=== PATIENT | female | born 2000 | race Caucasian/White ===

== ENCOUNTER 2023-12-15 13:28 | Emergency (ER) | payer SELFPAY ==
[~2023-12-15] VITALS: Ht 157.5 cm; Wt 60.0 kg
[2023-12-15 13:37] VITALS: O2SAT 98
[2023-12-15 14:08] LABS: BASOPHILS % 0.6 % (0.0-2.0); EOSINOPHILS % 0.9 % (0.0-5.0); HEMATOCRIT. 37.5 % (36.0-48.0); HEMOGLOBIN. 12.6 g/dL (12.0-16.0); LYMPHOCYTES % 29.2 % (20.0-50.0); MEAN CORPUSCULAR HEMOGLOBIN 31.6 pg (28.0-32.0); MEAN CORPUSCULAR HGB CONC 33.5 g/dL (31.0-37.0); MEAN CORPUSCULAR VOLUME 94.2 fL (81.0-99.0); MEAN PLATELET VOLUME 9.6 fl (7.4-10.4); MONOCYTES % 6.5 % (2.0-8.0); NEUTROPHILS % 62.8 % (40.0-76.0); PLATELET 223 x1000/uL (130-400); RED BLOOD CELL COUNT 3.99 mill/uL (4.2-5.4); RED CELL DISTRIBUTION WIDTH 12.7 % (11.6-14.6); WHITE BLOOD COUNT 7.2 x1000/uL (4.5-11.0)
[2023-12-15 14:17] LABS: CHLORIDE 105 mEq/L (98-107); POTASSIUM 3.9 mEq/L (3.5-5.1); SODIUM 139 mEq/L (136-145)
[2023-12-15 14:19] LABS: CALCIUM 9.4 mg/dL (8.7-10.4); CARBON DIOXIDE 28 mEq/L (21-32)
[2023-12-15 14:23] LABS: CREATININE 0.7 mg/dL (0.6-1.0)
[2023-12-15 14:24] LABS: GLUCOSE 103 mg/dL (70-105); UREA NITROGEN BLOOD 6 mg/dL (9-23)
[2023-12-15 14:47] LABS: B-HCG QUANTITATIVE 1969 mIU/mL (<3)
[2023-12-15] MEDS ORDERED: TOPUD MT (15:58)
[2023-12-15 17:02] VITALS: BP 125/62; PULSE 92; RESP 20; TEMP 98.2
== END 2023-12-15 17:03 | disposition home or self-care (01) ==
LOC: ER 13:28
DX: O20.0 Threatened abortion (principal); Z3A.01 Less than 8 weeks gestation of pregnancy; Z98.890 Other specified postprocedural states
CPT/HCPCS: 36415; 76801; 80048; 81025; 84702; 85025; 86850; 86900; 99284

== ENCOUNTER 2023-12-20 18:50 | Emergency (ER) | payer SELFPAY ==
[~2023-12-20] VITALS: Ht 154.9 cm; Wt 63.0 kg
[~2023-12-20 18:50] MED LIST: TOPUD MT
[2023-12-20 19:04] VITALS: TEMP 101.8; O2SAT 100
[2023-12-20] MEDS ORDERED: ACETAMINOPHEN 325MG TABLET PO ONE (20:00)
[2023-12-20 20:14] LABS: CLARITY URINE CLEAR (CLEAR); COLOR URINE YELLOW (YELLOW); GLUCOSE URINE NEGATIVE (NEGATIVE); KETONES URINE 1+ (NEGATIVE); LEUKOCYTE ESTERASE URINE NEGATIVE (NEGATIVE); NITRITE URINE NEGATIVE (NEGATIVE); OCCULT BLOOD URINE 3+ (NEGATIVE); PH URINE 8.5 (4.5-8.0); PROTEIN URINE TRACE (NEGATIVE); SPECIFIC GRAVITY URINE 1.009 (1.005-1.030)
[2023-12-20 20:17] LABS: DIFFERENTIAL COMMENT 1; HEMATOCRIT. 38.7 % (36.0-48.0); MEAN CORPUSCULAR HEMOGLOBIN 31.8 pg (28.0-32.0); MEAN CORPUSCULAR HGB CONC 33.5 g/dL (31.0-37.0); MEAN CORPUSCULAR VOLUME 94.7 fL (81.0-99.0); MEAN PLATELET VOLUME 10.1 fl (7.4-10.4); PLATELET 182 x1000/uL (130-400); RED BLOOD CELL COUNT 4.09 mill/uL (4.2-5.4); RED CELL DISTRIBUTION WIDTH 12.7 % (11.6-14.6); WHITE BLOOD COUNT 5.7 x1000/uL (4.5-11.0)
[2023-12-20 20:22] LABS: CHLORIDE 105 mEq/L (98-107); POTASSIUM 3.7 mEq/L (3.5-5.1); SODIUM 136 mEq/L (136-145)
[2023-12-20 20:23] LABS: CALCIUM 9.7 mg/dL (8.7-10.4); CARBON DIOXIDE 24 mEq/L (21-32)
[2023-12-20 20:25] LABS: BACTERIA URINE 1+; RBC URINE TNTC /hpf (0-2); SQUAMOUS EPITHELIAL CELL URINE FEW /lpf (RARE/1+); WBC URINE 0-2 /hpf (0-2)
[2023-12-20 20:28] LABS: CREATININE 0.8 mg/dL (0.6-1.0); GLUCOSE 119 mg/dL (70-105)
[2023-12-20 20:30] LABS: ALANINE AMINOTRANSFERASE 19 IU/L (10-49); ALBUMIN 4.8 g/dL (3.2-4.8); ASPARTATE AMINOTRANSFERASE 22 IU/L (<34); BILIRUBIN TOTAL 0.4 mg/dL (0.1-1.0)
[2023-12-20 20:31] LABS: PLATELET ESTIMATE NORMAL
[2023-12-20 20:34] LABS: UREA NITROGEN BLOOD < 5 mg/dL (9-23)
[2023-12-20] MEDS: ACETAMINOPHEN 325MG TABLET PO NR (22:08)
[2023-12-20] MEDS: SODIUM CHLORIDE 0.9% 1000ML BAG (SEPSIS BOLUS) IV ONE (22:18)
[2023-12-21] MEDS ORDERED: IBUP-2029 MT (02:24)
[2023-12-21 02:30] VITALS: BP 107/56; PULSE 83; RESP 14
== END 2023-12-21 02:32 | disposition home or self-care (01) ==
LOC: ER 18:50
DX: O03.9 Complete or unspecified spontaneous abortion without complication (principal); U07.1 COVID-19; Z98.890 Other specified postprocedural states
CPT/HCPCS: 99284; 96360; 87426; 80053; 81003; 81025; 84702; 83605; 85025; 36415; 76801; 76817; J7030